=== PATIENT | male | born 1990 | race Caucasian/White ===

== ENCOUNTER 2023-08-13 19:42 | Emergency (ER) | payer OTHER ==
[~2023-08-13 19:42] MED LIST: FLOMAX0.4 MG PO; HYDROCODON-ACE1 EA10 PO; ONDANSETRON ODT8 MG PO
[2023-08-13 20:29] LABS: BASOPHILS 0.7 % (0-2); EOSINOPHILS 2.2 % (0-6); HEMATOCRIT 42.7 % (35.0-50.0); HEMOGLOBIN 14.5 g/dL (12.0-18.0); LYMPHOCYTES 24.3 % (24-44); MCHC 33.9 g/dl (30-36); MCV 91.2 fl (81-99); MONOCYTES 8.9 % (0-12); NEUTROPHILS 63.9 % (39-80); PLATELET COUNT 236 K/uL (140-440); RBC 4.68 M/ul (4.3-5.7); RDW 13.2 (10.5-15.0)
[2023-08-13 20:49] LABS: ALBUMIN 3.7 g/dL (3.4-5.0); ANION GAP 14.5 (7-21); BILIRUBIN, TOTAL 0.3 ng/dL (0.2-1.0); BUN/CREATININE RATIO 16.82 (6.0-28.6); CALCIUM 9.1 mg/dL (8.5-10.1); CREATININE, SERUM 1.07 mg/dL (0.70-1.30); POTASSIUM 3.5 mmol/L (3.5-5.1); PROTEIN, TOTAL 7.4 g/dL (6.4-8.2)
[2023-08-13 20:55] LABS: INFLUENZA B NAA NEGATIVE (NEGATIVE); RESPIRATORY SYNCYTIAL VIR NAA NEGATIVE (NEGATIVE)
[2023-08-13 21:52] VITALS: BP 139/82
== END 2023-08-13 21:55 | disposition home or self-care (01) ==
LOC: ED 19:42
PROVIDERS: Family Medicine
DX: J44.1 Chronic obstructive pulmonary disease with (acute) exacerbation (principal); Z11.52 Encounter for screening for COVID-19
CPT/HCPCS: 36415; 71045; 80053; 85025; 85379; 87502; 94640; 94664; 96374; 99285-25; C9803; J2930; U0002

== ENCOUNTER 2025-04-21 18:16 | Emergency (ER) | payer OTHER ==
[~2025-04-21] VITALS: Ht 175.3 cm; Wt 69.8 kg
[2025-04-21] MEDS ORDERED: TETRACAINE HCL 0.5% 4 ML BTL OD SCH (19:30)
[2025-04-21] MEDS ORDERED: MAXITROL EYE DRO5 ML OPTH (20:33)
[2025-04-21] MEDS ORDERED: NEOMYCIN/POLYMYXIN/DEXAMETH 3.5 GM TUBE ONE (20:34)
[2025-04-21] MEDS ORDERED: NEOMYCIN/POLYMYXIN/DEXAMETH OPTH SUSPENSION BOTTLE OD ONE (20:45)
[2025-04-21 20:52] VITALS: BP 131/77
== END 2025-04-21 20:53 | disposition home or self-care (01) ==
LOC: ED 18:16
DX: S05.01XA Injury of conjunctiva and corneal abrasion without foreign body, right eye, initial encounter (principal); K21.9 Gastro-esophageal reflux disease without esophagitis; Z23 Encounter for immunization; X58.XXXA Exposure to other specified factors, initial encounter
CPT/HCPCS: 99283

== ENCOUNTER 2025-04-28 21:25 | Emergency (ER) | payer OTHER ==
[~2025-04-28] VITALS: Ht 175.3 cm; Wt 69.8 kg
--- OUTSIDE RECORDS SUMMARY | ~2025-04-28 | XMS | Continuity of Care Document ---
Demographics + + + | Address | [address] | | | [place] [address] | + + + | Preferred Language | Unknown | + + + | Marital Status | Never | + + + | Pentecostal Affiliation | Unknown | + + + | Race | White | + + + | Ethnic Group | Not or | + + + Author + + + | Author | [facility] | + + + | Organization | [facility] | + + + | Address | [address] | | | [place] [address] | + + + | Phone | | + + + Care Team Providers + + + + | Care Auto Repair Shop Manager Name | Role | Phone | + + + + Unavailable | Unavailable | + + + + Unavailable | Unavailable | + + + + Allergies No information. Encounters No information. Functional Status No information. Immunizations No information. Medications + + + + | date | description | facility | + + + + | 2025-04-21 00:00 | ALBERT/POLYMYX B | [facility] | | | SULF/DEXAMETH | [facility] | + + + + Problems + + + + | date | description | facility | + + + + | 2025-04-21 00:00 | Corneal abrasion | [facility] | | | | [facility] | + + + + Procedures No information. Results/Labs No information. Social History + + + + | date | description | facility | + + + + | (no date) | Unknown if ever smoked | [facility] | | | | [facility] | + + + + Vital Signs + + + +---------+ | date | measurement | value | units | + + + +---------+ | 2025-04-21 00:00 | BMI | 22.7 | kg/m2 | + + + +---------+ | 2025-04-21 00:00 | BP_diastolic | 77 | mmHg | + + + +---------+ | 2025-04-21 00:00 | BP_systolic | 131 | mmHg | + + + +---------+ | 2025-04-21 00:00 | heart_rate | 77 | /min | + + + +---------+ | 2025-04-21 00:00 | height_metric | 175.26 | cm | + + + +---------+ | 2025-04-21 00:00 | height_standard | 69 | in | + + + +---------+ | 2025-04-21 00:00 | o2_saturation | 99 | % | + + + +---------+ | 2025-04-21 00:00 | respiration_rate | 16 | /min | + + + +---------+ | 2025-04-21 00:00 | | 98.2 | F | | | temperature_standar | | | | | d | | | + + + +---------+ | 2025-04-21 00:00 | weight_metric | 69.799 | kg | + + + +---------+ | 2025-04-21 00:00 | weight_standard | 153.881 | lb | + + + +---------+"
[~2025-04-28 21:25] MED LIST changes: +MAXITROL EYE DRO5 ML OPTH
--- OUTSIDE RECORDS SUMMARY | 2025-04-28 21:32 | XMS ---
PreManage Notification: FRED GARCIA Security Nursing Service Administrator Events No recent Security Events currently on file CRITERIA MET - [facility] - 2 Visits in 30 Days CARE PROVIDERS -, [facility] Dentist: Flask Handler Current [facility] PHONE: [phone] -Connie- Dentist: Flask Handler [facility] PHONE: [phone] CASANDRA VARNER [facility] Current PHONE: [phone] Dia Garcia Physician Warehouse Selector Renetta PHELPS PHONE: [phone] Kyra has no Care Guidelines for this patient. August VISIT COUNT (12 MO.) 2 [facility] TOTAL 2 NOTE: Visits indicate total known visits. ED/UCC VISIT TRACKING (12 MO.) 04/28/2025 21:26 [facility] [place] TYPE: Emergency COMPLAINT: - THROAT ISSUE 04/21/2025 18:[address] [facility] [place] TYPE: Emergency COMPLAINT: - FOREIGN OBJECT EYE DIAGNOSES: - Encounter for immunization - Exposure to other specified factors, initial encounter - Foreign body on external eye, part unspecified, right eye, initial encounter - Gastro-esophageal reflux disease without esophagitis - Injury of conjunctiva and corneal abrasion without foreign body, right eye, initial encounter - Injury of conjunctiva and corneal abrasion without foreign body, right eye, initial encounter INPATIENT VISIT TRACKING (12 MO.) No inpatient visits to display in this time frame [email or web address]
[2025-04-28] MEDS ORDERED: DEXAMETHASONE SOD PHOS 10 MG/ML VIAL IV ONE (22:15)
[2025-04-28 22:32] LABS: BASOPHILS 0.4 % (0.2-1.2); EOSINOPHILS 1.0 % (0.8-7.0); LYMPHOCYTES 12.9 % (21.8-53.1); MCH 30.4 PG (25.7-32.2); MCHC 34.3 g/dL (32.3-36.5); MCV 88.7 fL (79.0-92.2); MONOCYTES 7.4 % (5.3-12.2); NEUTROPHILS 77.9 % (34.0-67.9); RBC 4.60 M/uL (4.63-6.08)
[2025-04-28 22:51] LABS: LACTIC ACID, BLOOD 1.6 mmol/L (0.4-2.0)
[2025-04-28 22:58] LABS: ALT (SGPT) 24.0 U/L (14-59); AST (SGOT) 14.0 U/L (15-37); GLOMERULAR FILTRATION RATE,EST 102.0 mL/min (>60); PROTEIN, TOTAL 7.4 g/dL (6.4-8.2); UREA NITROGEN 13.0 mg/dL (7-18)
[2025-04-28] MEDS ORDERED: DEXAMETHASONE4 MG PO (23:23)
[2025-04-28] MEDS ORDERED: AMOX TR-K CLV1 EAC1 PO (23:23)
[2025-04-28] MEDS ORDERED: HYDROCODONE BIT/ACETAMINOPHEN 5/325 MG 1 TAB HOME.PACK PO PRN (23:30)
[2025-04-28] MEDS ORDERED: AMOXICILLIN/CLAVULANATE K 875 MG HOME.PACK PO ONE (23:30)
[2025-04-28 23:36] VITALS: BP 112/75
== END 2025-04-28 23:37 | disposition home or self-care (01) ==
LOC: ED 21:25
PROVIDERS: Emergency Medicine
DX: J36 Peritonsillar abscess (principal)
CPT/HCPCS: 36415; 80053; 83605; 85025; 87040; 96374; 96375; 99283-25; A9270; J0696; J1100